=== PATIENT | male | born 2000 | race Caucasian/White ===

== ENCOUNTER 2021-10-01 16:49 | Outpatient (CLI) | payer OTHER, SELFPAY ==
--- NOTE | 2021-10-01 17:09 | XR_ITS ---
WS: [id number] XR thoracic spine 2V [id number] REASON FOR EXAM: THORACIC SPINE PAIN FINDINGS: Normal curvature of the thoracic spine. No vertebral body abnormality. Intervertebral disc spaces are intact and well preserved. XR/XR thoracic spine 2V [id number] IMPRESSION: No significant abnormality.
--- NOTE | 2021-10-01 17:09 | XR_ITS ---
WS: [id number] XR lumbar spine 2-3V* [id number] REASON FOR EXAM: LUMBAR PAIN FINDINGS: Mild straightening of the normal lordosis of the lumbar spine. No vertebral body abnormality. Intervertebral disc spaces are intact and well preserved. No spondylolisthesis or spondylolysis. XR/XR lumbar spine 2-3V* [id number] IMPRESSION: No significant abnormality.
--- NOTE | 2021-10-01 17:09 | XR_ITS ---
WS: [id number] XR cervical spine 3V* [id number] REASON FOR EXAM: CERVICAL PAIN FINDINGS: Normal lordosis of the cervical spine. No vertebral body abnormality. Normal odontoid. Intervertebral disc spaces are well preserved. Normal facet joint alignment. No listhesis. XR/XR cervical spine 3V* [id number] IMPRESSION: Unremarkable cervical spine.
== END 2021-10-01 16:50 | disposition home or self-care (01) ==
PROVIDERS: PCP Nurse Practitioner Family; Visit Provider Nurse Practitioner Family
DX: M54.2 Cervicalgia (principal); M54.50 Low back pain, unspecified; M54.6 Pain in thoracic spine
CPT/HCPCS: 72040; 72070; 72100

== ENCOUNTER 2021-10-19 06:00 | Outpatient (RCR) | payer OTHER, SELFPAY | END 2021-10-21 23:59 | disposition home or self-care (01) | LOC: SPT 06:00 | PROVIDERS: PCP Nurse Practitioner Family; Visit Provider Nurse Practitioner Family | DX: M54.50 Low back pain, unspecified (principal); M54.6 Pain in thoracic spine; M54.2 Cervicalgia; V89.2XXD Person injured in unspecified motor-vehicle accident, traffic, subsequent encounter | CPT/HCPCS: 97110; 97161 ==

== ENCOUNTER 2021-10-22 06:00 | Outpatient (RCR) | payer OTHER, SELFPAY | END 2021-11-20 23:59 | disposition home or self-care (01) | LOC: SPT 06:00 | PROVIDERS: PCP Nurse Practitioner Family; Visit Provider Nurse Practitioner Family | DX: M54.2 Cervicalgia (principal); M54.6 Pain in thoracic spine | CPT/HCPCS: 97110; 97140 ==

== ENCOUNTER 2021-11-21 06:00 | Outpatient (RCR) | payer OTHER, SELFPAY | END 2021-12-21 23:59 | disposition home or self-care (01) | LOC: SPT 06:00 | PROVIDERS: PCP Nurse Practitioner Family; Visit Provider Nurse Practitioner Family | DX: M54.50 Low back pain, unspecified (principal); M54.6 Pain in thoracic spine; M54.2 Cervicalgia | CPT/HCPCS: 97110; 97140 ==